=== PATIENT | male | born 1965 | race Caucasian/White ===

== ENCOUNTER → 2019-06-23 14:48 | Outpatient (BNVA) | payer MEDICARE, MEDICAID, SELFPAY | PROVIDERS: Family Provider Family Medicine; PCP Family Medicine; Visit Provider Social Worker | DX: F33.1 Major depressive disorder, recurrent, moderate (principal); F41.1 Generalized anxiety disorder; F42.2 Mixed obsessional thoughts and acts | CPT/HCPCS: 90834 ==

== ENCOUNTER → 2019-08-03 14:45 | Outpatient (BNVA) | payer MEDICARE, MEDICAID, SELFPAY | PROVIDERS: Family Provider Family Medicine; PCP Family Medicine; Visit Provider Social Worker | DX: F33.1 Major depressive disorder, recurrent, moderate (principal); F41.1 Generalized anxiety disorder; F42.2 Mixed obsessional thoughts and acts | CPT/HCPCS: 90834 ==

== ENCOUNTER → 2019-08-23 14:57 | Outpatient (BNVA) | payer OTHER, SELFPAY | PROVIDERS: Family Provider Family Medicine; PCP Family Medicine; Visit Provider Nurse Practitioner Psychiatric/Mental Health | DX: F33.1 Major depressive disorder, recurrent, moderate (principal) | CPT/HCPCS: 80061; 83036 ==

== ENCOUNTER → 2019-09-28 15:37 | Outpatient (BNVA) | payer MEDICARE, MEDICAID, SELFPAY | PROVIDERS: Family Provider Family Medicine; PCP Family Medicine; Visit Provider Social Worker | DX: F33.1 Major depressive disorder, recurrent, moderate (principal); F41.1 Generalized anxiety disorder; F42.2 Mixed obsessional thoughts and acts | CPT/HCPCS: 90834 ==

== ENCOUNTER → 2019-10-26 08:33 | Outpatient (BNVA) | payer MEDICARE, MEDICAID, SELFPAY | PROVIDERS: Family Provider Family Medicine; PCP Family Medicine; Visit Provider Nurse Practitioner Psychiatric/Mental Health | DX: F33.1 Major depressive disorder, recurrent, moderate (principal); F41.1 Generalized anxiety disorder; F42.2 Mixed obsessional thoughts and acts | CPT/HCPCS: 99214 ==

== ENCOUNTER → 2019-11-22 08:45 | Outpatient (BNVA) | payer MEDICARE, MEDICAID, SELFPAY ==
[2019-08-31 14:27] VITALS: BP 120/70; BMI 36.9
== END ==
PROVIDERS: Family Provider Family Medicine; PCP Family Medicine; Visit Provider Social Worker
DX: F41.1 Generalized anxiety disorder (principal); F33.1 Major depressive disorder, recurrent, moderate; F42.2 Mixed obsessional thoughts and acts
CPT/HCPCS: 90834

== ENCOUNTER → 2019-11-26 08:03 | Outpatient (BNVA) | payer MEDICARE, MEDICAID, SELFPAY ==
[2019-08-31 14:27] VITALS: BP 120/70; BMI 36.9
== END ==
PROVIDERS: Family Provider Family Medicine; PCP Family Medicine; Visit Provider Nurse Practitioner Psychiatric/Mental Health
DX: F33.1 Major depressive disorder, recurrent, moderate (principal); F41.1 Generalized anxiety disorder; F42.2 Mixed obsessional thoughts and acts; F17.210 Nicotine dependence, cigarettes, uncomplicated
CPT/HCPCS: 99214

== ENCOUNTER → 2020-01-04 07:44 | Outpatient (BNVA) | payer MEDICARE, MEDICAID, SELFPAY ==
[2019-08-31 14:27] VITALS: BP 120/70; BMI 36.9
== END ==
PROVIDERS: Family Provider Family Medicine; PCP Family Medicine; Visit Provider Nurse Practitioner Psychiatric/Mental Health
DX: F33.1 Major depressive disorder, recurrent, moderate (principal); F41.1 Generalized anxiety disorder; F42.2 Mixed obsessional thoughts and acts
CPT/HCPCS: 99213

== ENCOUNTER → 2020-01-19 08:35 | Outpatient (BNVA) | payer MEDICARE, MEDICAID, SELFPAY ==
[2019-08-31 14:27] VITALS: BP 120/70; BMI 36.9
== END ==
PROVIDERS: Family Provider Family Medicine; PCP Family Medicine; Visit Provider Counselor Professional
DX: F41.1 Generalized anxiety disorder (principal); F42.2 Mixed obsessional thoughts and acts; F33.1 Major depressive disorder, recurrent, moderate
CPT/HCPCS: 90834

== ENCOUNTER → 2020-02-08 09:31 | Outpatient (BNVA) | payer MEDICARE, MEDICAID, SELFPAY ==
[2019-08-31 14:27] VITALS: BP 120/70; BMI 36.9
== END ==
PROVIDERS: Family Provider Family Medicine; Visit Provider Nurse Practitioner Psychiatric/Mental Health
DX: F33.1 Major depressive disorder, recurrent, moderate (principal); F41.1 Generalized anxiety disorder; F42.2 Mixed obsessional thoughts and acts; F17.210 Nicotine dependence, cigarettes, uncomplicated
CPT/HCPCS: 99213

== ENCOUNTER → 2020-03-07 09:06 | Outpatient (BNVA) | payer MEDICARE, MEDICAID, SELFPAY ==
[2019-08-31 14:27] VITALS: BP 120/70; BMI 36.9
== END ==
PROVIDERS: Family Provider Family Medicine; Visit Provider Nurse Practitioner Psychiatric/Mental Health
DX: F33.1 Major depressive disorder, recurrent, moderate (principal); F41.1 Generalized anxiety disorder; F42.2 Mixed obsessional thoughts and acts
CPT/HCPCS: 99214

== ENCOUNTER → 2020-03-20 08:13 | Outpatient (BNVA) | payer MEDICARE, MEDICAID, SELFPAY ==
[2019-08-31 14:27] VITALS: BP 120/70; BMI 36.9
== END ==
PROVIDERS: Family Provider Family Medicine; Visit Provider Nurse Practitioner Psychiatric/Mental Health
DX: F33.1 Major depressive disorder, recurrent, moderate (principal); F41.1 Generalized anxiety disorder; F42.2 Mixed obsessional thoughts and acts
CPT/HCPCS: 99214

== ENCOUNTER → 2020-04-03 07:22 | Outpatient (BNVA) | payer MEDICARE, MEDICAID, SELFPAY ==
[2019-08-31 14:27] VITALS: BP 120/70; BMI 36.9
== END ==
PROVIDERS: Family Provider Family Medicine; Visit Provider Nurse Practitioner Psychiatric/Mental Health
DX: F33.1 Major depressive disorder, recurrent, moderate (principal); F41.1 Generalized anxiety disorder; F42.2 Mixed obsessional thoughts and acts
CPT/HCPCS: 99214

== ENCOUNTER → 2020-04-19 09:21 | Outpatient (BNVA) | payer MEDICARE, MEDICAID, SELFPAY ==
[2019-08-31 14:27] VITALS: BP 120/70; BMI 36.9
== END ==
PROVIDERS: Family Provider Family Medicine; Visit Provider Nurse Practitioner Psychiatric/Mental Health
DX: F33.1 Major depressive disorder, recurrent, moderate (principal); F41.1 Generalized anxiety disorder; F42.2 Mixed obsessional thoughts and acts
CPT/HCPCS: 99214

== ENCOUNTER → 2020-05-03 07:51 | Outpatient (BNVA) | payer MEDICARE, MEDICAID, SELFPAY ==
[2019-08-31 14:27] VITALS: BP 120/70; BMI 36.9
== END ==
PROVIDERS: Family Provider Family Medicine; Visit Provider Nurse Practitioner Psychiatric/Mental Health
DX: F33.1 Major depressive disorder, recurrent, moderate (principal); F41.1 Generalized anxiety disorder; F42.2 Mixed obsessional thoughts and acts
CPT/HCPCS: 99214

== ENCOUNTER → 2020-05-17 08:19 | Outpatient (BNVA) | payer MEDICARE, MEDICAID, SELFPAY ==
[2019-08-31 14:27] VITALS: BP 120/70; BMI 36.9
== END ==
PROVIDERS: Family Provider Family Medicine; Visit Provider Nurse Practitioner Psychiatric/Mental Health
DX: F33.1 Major depressive disorder, recurrent, moderate (principal); F41.1 Generalized anxiety disorder; F42.2 Mixed obsessional thoughts and acts
CPT/HCPCS: 99214

== ENCOUNTER → 2020-05-31 08:14 | Outpatient (BNVA) | payer MEDICARE, MEDICAID, SELFPAY ==
[2019-08-31 14:27] VITALS: BP 120/70; BMI 36.9
== END ==
PROVIDERS: Family Provider Family Medicine; Visit Provider Nurse Practitioner Psychiatric/Mental Health
DX: F33.1 Major depressive disorder, recurrent, moderate (principal); F41.1 Generalized anxiety disorder; F42.2 Mixed obsessional thoughts and acts
CPT/HCPCS: 99214

== ENCOUNTER → 2020-06-19 08:05 | Outpatient (BNVA) | payer MEDICARE, MEDICAID, SELFPAY ==
[2019-08-31 14:27] VITALS: BP 120/70; BMI 36.9
== END ==
PROVIDERS: Family Provider Family Medicine; Visit Provider Nurse Practitioner Psychiatric/Mental Health
DX: F33.1 Major depressive disorder, recurrent, moderate (principal); F41.1 Generalized anxiety disorder; F42.2 Mixed obsessional thoughts and acts; Z63.4 Disappearance and death of family member
CPT/HCPCS: 99214

== ENCOUNTER → 2020-07-03 09:35 | Outpatient (BNVA) | payer MEDICARE, MEDICAID, SELFPAY ==
[2019-08-31 14:27] VITALS: BP 120/70; BMI 36.9
== END ==
PROVIDERS: Family Provider Family Medicine; Visit Provider Nurse Practitioner Psychiatric/Mental Health
DX: F33.1 Major depressive disorder, recurrent, moderate (principal); F41.1 Generalized anxiety disorder; F42.2 Mixed obsessional thoughts and acts; Z63.4 Disappearance and death of family member
CPT/HCPCS: 99214

== ENCOUNTER → 2020-07-17 09:20 | Outpatient (BNVA) | payer MEDICARE, MEDICAID, SELFPAY ==
[2019-08-31 14:27] VITALS: BP 120/70; BMI 36.9
== END ==
PROVIDERS: Family Provider Family Medicine; Visit Provider Nurse Practitioner Psychiatric/Mental Health
DX: F33.1 Major depressive disorder, recurrent, moderate (principal); F41.1 Generalized anxiety disorder; F42.2 Mixed obsessional thoughts and acts; Z63.4 Disappearance and death of family member
CPT/HCPCS: 99214

== ENCOUNTER → 2020-08-04 08:16 | Outpatient (BNVA) | payer MEDICARE, MEDICAID, SELFPAY ==
[2019-08-31 14:27] VITALS: BP 120/70; BMI 36.9
== END ==
PROVIDERS: Family Provider Family Medicine; Visit Provider Nurse Practitioner Psychiatric/Mental Health
DX: F33.1 Major depressive disorder, recurrent, moderate (principal); F41.1 Generalized anxiety disorder; F42.2 Mixed obsessional thoughts and acts; Z63.4 Disappearance and death of family member
CPT/HCPCS: 99214

== ENCOUNTER → 2020-08-14 08:46 | Outpatient (BNVA) | payer MEDICARE, MEDICAID, SELFPAY ==
[2019-08-31 14:27] VITALS: BP 120/70; BMI 36.9
== END ==
PROVIDERS: Family Provider Family Medicine; Visit Provider Nurse Practitioner Psychiatric/Mental Health
DX: F33.1 Major depressive disorder, recurrent, moderate (principal); F41.1 Generalized anxiety disorder; F42.2 Mixed obsessional thoughts and acts; Z63.4 Disappearance and death of family member
CPT/HCPCS: 99214

== ENCOUNTER → 2020-08-28 07:50 | Outpatient (BNVA) | payer MEDICARE, MEDICAID, SELFPAY ==
[2019-08-31 14:27] VITALS: BP 120/70; BMI 36.9
== END ==
PROVIDERS: Family Provider Family Medicine; PCP Nurse Practitioner Family; Visit Provider Nurse Practitioner Psychiatric/Mental Health
DX: F33.1 Major depressive disorder, recurrent, moderate (principal); F41.1 Generalized anxiety disorder; F42.2 Mixed obsessional thoughts and acts; Z63.4 Disappearance and death of family member
CPT/HCPCS: 99214

== ENCOUNTER → 2020-09-11 10:35 | Outpatient (BNVA) | payer MEDICARE, MEDICAID, SELFPAY ==
[2019-08-31 14:27] VITALS: BP 120/70; BMI 36.9
== END ==
PROVIDERS: Family Provider Family Medicine; PCP Nurse Practitioner Family; Visit Provider Nurse Practitioner Psychiatric/Mental Health
DX: F33.1 Major depressive disorder, recurrent, moderate (principal); F41.1 Generalized anxiety disorder; F42.2 Mixed obsessional thoughts and acts; Z63.4 Disappearance and death of family member
CPT/HCPCS: 99214

== ENCOUNTER → 2020-09-13 11:32 | Outpatient (BNVA) | payer OTHER, SELFPAY ==
[2019-08-31 14:27] VITALS: BP 120/70; BMI 36.9
== END ==
PROVIDERS: Family Provider Family Medicine; PCP Nurse Practitioner Family; Visit Provider Nurse Practitioner Psychiatric/Mental Health
DX: F41.1 Generalized anxiety disorder (principal)
CPT/HCPCS: 80061; 83036

== ENCOUNTER → 2020-10-10 09:09 | Outpatient (BNVA) | payer MEDICARE, MEDICAID, SELFPAY ==
[2020-09-15 13:26] VITALS: BP 106/67; BMI 35.2
== END ==
PROVIDERS: Family Provider Family Medicine; Visit Provider Nurse Practitioner Psychiatric/Mental Health
DX: F33.1 Major depressive disorder, recurrent, moderate (principal); F41.1 Generalized anxiety disorder; F42.2 Mixed obsessional thoughts and acts; Z63.4 Disappearance and death of family member
CPT/HCPCS: 99214

== ENCOUNTER → 2020-10-23 08:30 | Outpatient (BNVA) | payer MEDICARE, MEDICAID, SELFPAY ==
[2020-09-15 13:26] VITALS: BP 106/67; BMI 35.2
== END ==
PROVIDERS: Family Provider Family Medicine; Visit Provider Nurse Practitioner Psychiatric/Mental Health
DX: F33.1 Major depressive disorder, recurrent, moderate (principal); F41.1 Generalized anxiety disorder; Z63.4 Disappearance and death of family member; F42.2 Mixed obsessional thoughts and acts
CPT/HCPCS: 99214

== ENCOUNTER → 2020-11-06 08:47 | Outpatient (BNVA) | payer MEDICARE, MEDICAID, SELFPAY ==
[2020-09-15 13:26] VITALS: BP 106/67; BMI 35.2
== END ==
PROVIDERS: Family Provider Family Medicine; Visit Provider Nurse Practitioner Psychiatric/Mental Health
DX: F33.1 Major depressive disorder, recurrent, moderate (principal); F41.1 Generalized anxiety disorder; F42.2 Mixed obsessional thoughts and acts; Z63.4 Disappearance and death of family member
CPT/HCPCS: 99214

== ENCOUNTER → 2020-11-27 14:00 | Outpatient (BNVA) | payer MEDICARE, MEDICAID, SELFPAY ==
[2020-11-06 11:09] VITALS: BP 106/67; BMI 35.2
== END ==
PROVIDERS: Family Provider Family Medicine; Visit Provider Nurse Practitioner Psychiatric/Mental Health
DX: Z63.4 Disappearance and death of family member (principal); F33.1 Major depressive disorder, recurrent, moderate; F41.1 Generalized anxiety disorder; F42.2 Mixed obsessional thoughts and acts
CPT/HCPCS: 99214

== ENCOUNTER → 2020-12-11 14:00 | Outpatient (BNVA) | payer MEDICARE, MEDICAID, SELFPAY ==
[2020-11-06 11:09] VITALS: BP 106/67; BMI 35.2
== END ==
PROVIDERS: Family Provider Family Medicine; PCP Nurse Practitioner Family; Visit Provider Nurse Practitioner Psychiatric/Mental Health
DX: Z63.4 Disappearance and death of family member (principal); F33.1 Major depressive disorder, recurrent, moderate; F41.1 Generalized anxiety disorder; F42.2 Mixed obsessional thoughts and acts
CPT/HCPCS: 99214

== ENCOUNTER → 2020-12-25 07:21 | Outpatient (BNVA) | payer MEDICARE, MEDICAID, SELFPAY ==
[2020-11-06 11:09] VITALS: BP 106/67; BMI 35.2
== END ==
PROVIDERS: Family Provider Family Medicine; Visit Provider Nurse Practitioner Psychiatric/Mental Health
DX: F33.1 Major depressive disorder, recurrent, moderate (principal); F41.1 Generalized anxiety disorder; F42.2 Mixed obsessional thoughts and acts; Z63.4 Disappearance and death of family member
CPT/HCPCS: 99214

== ENCOUNTER → 2021-01-08 15:16 | Outpatient (BNVA) | payer MEDICARE, MEDICAID, SELFPAY ==
[2020-11-06 11:09] VITALS: BP 106/67; BMI 35.2
== END ==
PROVIDERS: Family Provider Family Medicine; Visit Provider Nurse Practitioner Psychiatric/Mental Health
DX: F33.1 Major depressive disorder, recurrent, moderate (principal); F41.1 Generalized anxiety disorder; F42.2 Mixed obsessional thoughts and acts; Z63.4 Disappearance and death of family member
CPT/HCPCS: 99214

== ENCOUNTER → 2021-01-22 13:47 | Outpatient (BNVA) | payer MEDICARE, MEDICAID, SELFPAY ==
[2020-11-06 11:09] VITALS: BP 106/67; BMI 35.2
== END ==
PROVIDERS: Family Provider Family Medicine; Visit Provider Nurse Practitioner Psychiatric/Mental Health
DX: F33.1 Major depressive disorder, recurrent, moderate (principal); F41.1 Generalized anxiety disorder; F42.2 Mixed obsessional thoughts and acts; Z63.4 Disappearance and death of family member
CPT/HCPCS: 99214

== ENCOUNTER → 2021-02-05 13:42 | Outpatient (BNVA) | payer MEDICARE, MEDICAID, SELFPAY ==
[2020-11-06 11:09] VITALS: BP 106/67; BMI 35.2
== END ==
PROVIDERS: Family Provider Family Medicine; Visit Provider Nurse Practitioner Psychiatric/Mental Health
DX: F33.1 Major depressive disorder, recurrent, moderate (principal); F41.1 Generalized anxiety disorder; F42.2 Mixed obsessional thoughts and acts; Z63.4 Disappearance and death of family member
CPT/HCPCS: 99214

== ENCOUNTER → 2021-02-20 13:40 | Outpatient (BNVA) | payer MEDICARE, MEDICAID, SELFPAY ==
[2020-11-06 11:09] VITALS: BP 106/67; BMI 35.2
== END ==
PROVIDERS: Family Provider Family Medicine; Visit Provider Nurse Practitioner Psychiatric/Mental Health
DX: F33.1 Major depressive disorder, recurrent, moderate (principal); F41.1 Generalized anxiety disorder; F42.2 Mixed obsessional thoughts and acts; Z63.4 Disappearance and death of family member
CPT/HCPCS: 99214

== ENCOUNTER → 2021-03-02 13:39 | Outpatient (BNVA) | payer MEDICARE, MEDICAID, SELFPAY ==
[2020-11-06 11:09] VITALS: BP 106/67; BMI 35.2
== END ==
PROVIDERS: Family Provider Family Medicine; Visit Provider Nurse Practitioner Psychiatric/Mental Health
DX: F33.1 Major depressive disorder, recurrent, moderate (principal); F41.1 Generalized anxiety disorder; F42.2 Mixed obsessional thoughts and acts; Z63.4 Disappearance and death of family member
CPT/HCPCS: 99214

== ENCOUNTER → 2021-03-19 13:34 | Outpatient (BNVA) | payer MEDICARE, MEDICAID, SELFPAY ==
[2020-11-06 11:09] VITALS: BP 106/67; BMI 35.2
== END ==
PROVIDERS: Family Provider Family Medicine; Visit Provider Nurse Practitioner Psychiatric/Mental Health
DX: F33.1 Major depressive disorder, recurrent, moderate (principal); F41.1 Generalized anxiety disorder; F42.2 Mixed obsessional thoughts and acts; Z63.4 Disappearance and death of family member
CPT/HCPCS: 99214

== ENCOUNTER → 2021-04-09 14:10 | Outpatient (BNVA) | payer MEDICARE, MEDICAID, SELFPAY ==
[2020-11-06 11:09] VITALS: BP 106/67; BMI 35.2
== END ==
PROVIDERS: Family Provider Family Medicine; Visit Provider Nurse Practitioner Psychiatric/Mental Health
DX: F33.1 Major depressive disorder, recurrent, moderate (principal); F41.1 Generalized anxiety disorder; F42.2 Mixed obsessional thoughts and acts; Z63.4 Disappearance and death of family member
CPT/HCPCS: 99214

== ENCOUNTER → 2021-04-23 12:37 | Outpatient (BNVA) | payer MEDICARE, MEDICAID, SELFPAY ==
[2020-11-06 11:09] VITALS: BP 106/67; BMI 35.2
== END ==
PROVIDERS: Family Provider Family Medicine; Visit Provider Nurse Practitioner Psychiatric/Mental Health
DX: F33.1 Major depressive disorder, recurrent, moderate (principal); F41.1 Generalized anxiety disorder; F42.2 Mixed obsessional thoughts and acts; Z63.4 Disappearance and death of family member
CPT/HCPCS: 99214

== ENCOUNTER → 2021-05-07 13:03 | Outpatient (BNVA) | payer MEDICARE, MEDICAID, OTHER, SELFPAY ==
[2020-11-06 11:09] VITALS: BP 106/67; BMI 35.2
== END ==
PROVIDERS: Family Provider Family Medicine; Visit Provider Nurse Practitioner Psychiatric/Mental Health
DX: F33.1 Major depressive disorder, recurrent, moderate (principal); F41.1 Generalized anxiety disorder; F42.2 Mixed obsessional thoughts and acts; Z63.4 Disappearance and death of family member
CPT/HCPCS: 99214

== ENCOUNTER → 2021-05-21 13:09 | Outpatient (BNVA) | payer MEDICARE, MEDICAID, OTHER, SELFPAY ==
[2020-11-06 11:09] VITALS: BP 106/67; BMI 35.2
== END ==
PROVIDERS: Family Provider Family Medicine; Visit Provider Nurse Practitioner Psychiatric/Mental Health
DX: F33.1 Major depressive disorder, recurrent, moderate (principal); F41.1 Generalized anxiety disorder; F42.2 Mixed obsessional thoughts and acts; Z63.4 Disappearance and death of family member
CPT/HCPCS: 99214

== ENCOUNTER → 2021-06-04 14:45 | Outpatient (BNVA) | payer MEDICARE, MEDICAID, OTHER, SELFPAY ==
[2020-11-06 11:09] VITALS: BP 106/67; BMI 35.2
== END ==
PROVIDERS: Family Provider Family Medicine; Visit Provider Nurse Practitioner Psychiatric/Mental Health
DX: F33.1 Major depressive disorder, recurrent, moderate (principal); F41.1 Generalized anxiety disorder; F42.2 Mixed obsessional thoughts and acts; Z63.4 Disappearance and death of family member
CPT/HCPCS: 99214

== ENCOUNTER → 2021-06-25 08:08 | Outpatient (BNVA) | payer MEDICARE, MEDICAID, OTHER, SELFPAY ==
[2020-11-06 11:09] VITALS: BP 106/67; BMI 35.2
== END ==
PROVIDERS: Family Provider Family Medicine; Visit Provider Nurse Practitioner Psychiatric/Mental Health
DX: F33.1 Major depressive disorder, recurrent, moderate (principal); F41.1 Generalized anxiety disorder; F42.2 Mixed obsessional thoughts and acts; Z63.4 Disappearance and death of family member
CPT/HCPCS: 99214

== ENCOUNTER → 2021-07-25 07:37 | Outpatient (BNVA) | payer MEDICARE, MEDICAID, SELFPAY ==
[2020-11-06 11:09] VITALS: BP 106/67; BMI 35.2
== END ==
PROVIDERS: Family Provider Family Medicine; PCP Family Medicine; Visit Provider Nurse Practitioner Psychiatric/Mental Health
DX: F33.1 Major depressive disorder, recurrent, moderate (principal); F41.1 Generalized anxiety disorder; F42.2 Mixed obsessional thoughts and acts; Z63.4 Disappearance and death of family member
CPT/HCPCS: 99214

== ENCOUNTER → 2021-08-10 13:01 | Outpatient (BNVA) | payer MEDICARE, MEDICAID, SELFPAY ==
[2020-11-06 11:09] VITALS: BP 106/67; BMI 35.2
== END ==
PROVIDERS: Family Provider Family Medicine; PCP Family Medicine; Visit Provider Nurse Practitioner Psychiatric/Mental Health
DX: F33.1 Major depressive disorder, recurrent, moderate (principal); F41.1 Generalized anxiety disorder; F42.2 Mixed obsessional thoughts and acts; Z63.4 Disappearance and death of family member
CPT/HCPCS: 99214

== ENCOUNTER → 2021-09-06 13:21 | Outpatient (BNVA) | payer MEDICARE, MEDICAID, SELFPAY ==
[2020-11-06 11:09] VITALS: BP 106/67; BMI 35.2
== END ==
PROVIDERS: Family Provider Family Medicine; PCP Family Medicine; Visit Provider Nurse Practitioner Psychiatric/Mental Health
DX: F33.1 Major depressive disorder, recurrent, moderate (principal); F41.1 Generalized anxiety disorder; F42.2 Mixed obsessional thoughts and acts; Z79.899 Other long term (current) drug therapy; Z63.4 Disappearance and death of family member
CPT/HCPCS: 99214

== ENCOUNTER → 2021-09-20 13:10 | Outpatient (BNVA) | payer MEDICARE, MEDICAID, SELFPAY ==
[2020-11-06 11:09] VITALS: BP 106/67; BMI 35.2
== END ==
PROVIDERS: PCP Nurse Practitioner Family; Visit Provider Nurse Practitioner Psychiatric/Mental Health
DX: F33.1 Major depressive disorder, recurrent, moderate (principal); F41.1 Generalized anxiety disorder; F42.2 Mixed obsessional thoughts and acts; Z63.4 Disappearance and death of family member
CPT/HCPCS: 99214

== ENCOUNTER → 2021-09-25 11:24 | Outpatient (BNVA) | payer MEDICARE, MEDICAID, OTHER, SELFPAY ==
[2020-11-06 11:09] VITALS: BP 106/67; BMI 35.2
== END ==
PROVIDERS: PCP Nurse Practitioner Family; Visit Provider Nurse Practitioner Psychiatric/Mental Health
DX: Z79.899 Other long term (current) drug therapy (principal); F41.1 Generalized anxiety disorder
CPT/HCPCS: 80053; 80061; 83036

== ENCOUNTER → 2021-10-11 13:12 | Outpatient (BNVA) | payer MEDICARE, MEDICAID, SELFPAY ==
[2021-09-28 13:49] VITALS: BP 134/77; BMI 38.1
== END ==
PROVIDERS: PCP Nurse Practitioner Family; Visit Provider Nurse Practitioner Psychiatric/Mental Health
DX: F33.1 Major depressive disorder, recurrent, moderate (principal); F41.1 Generalized anxiety disorder; F42.2 Mixed obsessional thoughts and acts; Z63.4 Disappearance and death of family member
CPT/HCPCS: 99214

== ENCOUNTER → 2021-10-25 13:16 | Outpatient (BNVA) | payer MEDICARE, MEDICAID, SELFPAY ==
[2021-09-28 13:49] VITALS: BP 134/77; BMI 38.1
== END ==
PROVIDERS: PCP Nurse Practitioner Family; Visit Provider Nurse Practitioner Psychiatric/Mental Health
DX: F33.1 Major depressive disorder, recurrent, moderate (principal); F41.1 Generalized anxiety disorder; F42.2 Mixed obsessional thoughts and acts; Z63.4 Disappearance and death of family member
CPT/HCPCS: 99214

== ENCOUNTER → 2021-11-08 13:13 | Outpatient (BNVA) | payer MEDICARE, MEDICAID, SELFPAY ==
[2021-09-28 13:49] VITALS: BP 134/77; BMI 38.1
== END ==
PROVIDERS: PCP Nurse Practitioner Family; Visit Provider Nurse Practitioner Psychiatric/Mental Health
DX: F33.1 Major depressive disorder, recurrent, moderate (principal); F41.1 Generalized anxiety disorder; F42.2 Mixed obsessional thoughts and acts; Z63.4 Disappearance and death of family member
CPT/HCPCS: 99214

== ENCOUNTER → 2021-11-13 13:10 | Outpatient (BNVA) | payer MEDICARE, MEDICAID, SELFPAY ==
[2021-09-28 13:49] VITALS: BP 134/77; BMI 38.1
== END ==
PROVIDERS: PCP Nurse Practitioner Family; Visit Provider Podiatrist Foot & Ankle Surgery
DX: L85.3 Xerosis cutis (principal); L30.9 Dermatitis, unspecified; M79.671 Pain in right foot; L60.0 Ingrowing nail
CPT/HCPCS: 11750

== ENCOUNTER → 2021-11-22 13:15 | Outpatient (BNVA) | payer MEDICARE, MEDICAID, SELFPAY ==
[2021-09-28 13:49] VITALS: BP 134/77; BMI 38.1
== END ==
PROVIDERS: PCP Nurse Practitioner Family; Visit Provider Nurse Practitioner Psychiatric/Mental Health
DX: F33.1 Major depressive disorder, recurrent, moderate (principal); F41.1 Generalized anxiety disorder; F42.2 Mixed obsessional thoughts and acts; Z63.4 Disappearance and death of family member
CPT/HCPCS: 99214

== ENCOUNTER → 2021-11-29 11:51 | Outpatient (BNVA) | payer MEDICARE, MEDICAID, SELFPAY ==
[2021-09-28 13:49] VITALS: BP 134/77; BMI 38.1
== END ==
PROVIDERS: PCP Nurse Practitioner Family; Visit Provider Podiatrist Foot & Ankle Surgery
DX: L60.0 Ingrowing nail (principal); M79.672 Pain in left foot; Z98.890 Other specified postprocedural states
CPT/HCPCS: 11750; 99213

== ENCOUNTER → 2021-12-18 12:19 | Outpatient (BNVA) | payer MEDICARE, MEDICAID, SELFPAY ==
[2021-09-28 13:49] VITALS: BP 134/77; BMI 38.1
== END ==
PROVIDERS: PCP Nurse Practitioner Family; Visit Provider Family Medicine Adult Medicine
DX: Z20.822 Contact with and (suspected) exposure to COVID-19 (principal)
CPT/HCPCS: 87635

== ENCOUNTER 2022-02-15 06:27 | Day surgery (SDC) | payer MEDICARE, MEDICAID, SELFPAY ==
[2021-09-28 13:49] VITALS: BP 134/77; BMI 38.1
[2022-02-14 09:12] VITALS: BMI 37.3
[2022-02-15 06:49] VITALS: BP 110/74; PULSE 95; RESP 18; TEMP 36.2; O2SAT 93
[2022-02-15] MEDS: sodium chloride 0.9% 1,000 ML 30 ML IV (06:58)
--- NOTE | 2022-02-15 07:04 | W.PM.OPSUD ---
Surgery/Procedure H&P Update DATE OF PROCEDURE: February 15, 2022 DATE H&P PERFORMED: 02/01/22 CHANGES TO PREVIOUS DOCUMENTATION: None PREOP DIAGNOSIS: Chronic GERD despite PPI therapy PLANNED PROCEDURE: Operation Date: 02/15/22 08:00 Proposed Procedures p EGD 25556,k21.9(Not Applicable) - Los Velazco MD Related Problem List Diagnoses (1) Chronic GERD: Assessment and plan (1) Chronic GERD: We discussed the risks of bleeding, perforation, and sedation. The patient has no further questions and wishes to proceed. Status: Acute
--- NOTE | 2022-02-15 07:19 | P.ANESASSM_ITS ---
Pre-Anesthetic Assessment Height/Weight: Height 1.7 m Weight 107.955 kg Temp Pulse Resp BP Pulse Ox O2 Del Method 97.2 F L 95 18 110/74 93 02/15/22 06:49 02/15/22 06:49 02/15/22 06:49 02/15/22 06:49 02/15/22 06:49 02/15/22 06:49 Preop Diagnosis: Routine screening for colon cancer Operation Date: 02/15/22 08:00 Proposed Procedures p EGD 58947,k21.9(Not Applicable) - Los Velazco MD Familial anesthetic complications: None Was Beta [place] taken within 24 hours: N/A Was Clonidine taken within 24 hours: N/A Last intake: Intake Last Liquid Date 02/14/22 Last Liquid Time 20:30 Last Solid Date 02/14/22 Last Solid Time 20:30 Social No alcohol and No tobacco Exam alert, oriented x 3, clear to auscultation bilaterally and regular rate & rhythm Dampened energy - slow to respond Airway Mallampati: Class IV Dentition: other (2 missing teeth) Comments: Comments: Large neck circumference, large tongue CV/HEM Hypertension GI Gastroesophageal Reflux Disease Metabolic Hyperlipidemia and Morbid Obesity Neuropsych Seizure (no seizure in 10 years) Anesthetic Plan ASA status: 3 Anesthesia: MAC Risk of > 500 ml blood loss (7ml/kg in children): No Other Pertinent Information patient took his lisinopril this morning Medications/Allergies Home Medications Medication Instructions Recorded Confirmed Last Taken Type baclofen 20 mg tablet 20 mg PO TID 07/07/19 02/15/22 02/15/22 History calcium carbonate 200 mg-vitamin 1 cap PO TID 07/07/19 02/15/22 02/15/22 History D3 10 mcg (400 unit) capsule carbamazepine 200 mg tablet 200 mg PO TID 07/07/19 02/15/22 02/15/22 History (Tegretol) lisinopril 10 mg tablet 10 mg PO DAILY 07/07/19 02/15/22 02/15/22 History lovastatin 20 mg tablet 20 mg PO DAILY 07/07/19 02/15/22 02/14/22 History tamsulosin 0.4 mg capsule 0.4 mg PO DAILY 07/07/19 02/15/22 02/14/22 History levetiracetam 500 mg tablet 500 mg PO BID 05/30/20 02/15/22 02/15/22 History (Keppra) ammonium lactate 12 % lotion 1 applic topical BID #400 grams 08/17/20 02/15/22 Unknown Rx trazodone 50 mg tablet 50 mg PO .bedtime PRN insomnia #30 07/10/21 02/15/22 02/14/22 Rx tabs clonazepam 0.5 mg tablet (Klonopin) 0.5 mg PO TID #90 tabs 12/27/21 02/15/22 02/15/22 Rx duloxetine 60 mg capsule,delayed 120 mg PO DAILY #180 caps 12/27/21 02/15/22 02/15/22 Rx release (Cymbalta) cetirizine 10 mg capsule (Zyrtec) 10 mg PO DAILY PRN allergy 01/09/22 02/15/22 02/15/22 Rx symptoms #90 caps pantoprazole 40 mg tablet,delayed 40 mg PO DAILY 02/07/22 02/15/22 02/15/22 History release trazodone 100 mg tablet 200 mg PO DIRECTED #60 tabs 02/07/22 02/15/22 02/14/22 Rx sucralfate 1 gram tablet 1 g PO QID 02/15/22 02/15/22 02/15/22 History Allergies Allergy/AdvReac Type Severity Reaction Status Date / Time aspirin Allergy Unknown Verified 02/15/22 06:41 hydromorphone [From Dilaudid] Allergy Unknown Verified 02/15/22 06:41 Penicillins Allergy Unknown Verified 02/15/22 06:41 prednisone Allergy Unknown Verified 02/15/22 06:41 Current Medications Generic Name Dose Route Start Last Admin Trade Name Freq PRN Reason Stop Dose Admin Sodium Chloride 1,000 mls @ 30 mls/hr 02/15/22 06:45 02/15/22 06:58 Sodium Chloride 0.9% IV 02/16/22 06:44 30 mls/hr .Q24H NANCY Administration PFSH Anesthesia Medical History Bereavement father passing away on 01/14/20 COVID-19 virus test result equivocal Erectile dysfunction Generalized anxiety disorder History of high cholesterol History of hypertension History of seizures Major depressive disorder, recurrent episode, moderate with anxious distress Major depressive disorder, recurrent, moderate Mixed obsessional thoughts and acts Nasal drainage Psychiatric care Viral syndrome Family History Father Hypertension Cancer Brother Hypertension Social History Smoking and tobacco status: former smoker Second hand smoke exposure: Yes Alcohol intake: current Alcohol intake frequency: holidays/special occasions only Alcohol type: beer Adopted: No Caregiver/support person: Yes (Home Health comes in to clean and set up his medication) Lives independently: Yes Household members: none Housing: House Marital status: Marital status details: since 2007 Number of children: 2 Number of grandchildren: 10 Highest education level completed: Some College, No Degree service: No Current occupational status: disabled Current occupational exposures/hazards: No Pets and animals: No History of recent travel: Yes Leisure activites: music, games, hunting, fishing and other Leisure activities details: camping Sexually active: No Current gender identity: Male Tova/Cheondoism: Confucianist Special tova needs: No Agree to transfusion: Yes Financial difficulty paying for basics: Somewhat Hard Data Anesthesia Cardiac Studies: No Data to Display
[2022-02-15 08:35] VITALS: BP 90/54; PULSE 82; RESP 20; TEMP 36.6; O2SAT 97
[2022-02-15 08:45] VITALS: BP 104/62; PULSE 94; RESP 18; O2SAT 94
--- NOTE | 2022-02-16 09:01 | ANE.PACU2 ---
Inpatient post-anesthesia follow up: Airway intact: Yes Vital signs: Temperature 98 F Pulse Rate 94 Respiratory Rate 18 Blood Pressure 104/62 Pulse Oximetry 94 Oxygen Delivery Me thod Room Air Oxygen Flow Rate 10 Fraction of Inspir ed Oxygen Hydration adequate: Yes Nausea and vomiting: No Pain level: 2 Mental status: Baseline
[2022-02-16 13:32] LABS: H. Pylori / CLO Test Negative
== END 2022-02-15 09:10 | disposition home or self-care (01) ==
PROVIDERS: PCP Nurse Practitioner Family; Visit Provider Family Medicine
PROC: 0DJ08ZZ Inspection of Upper Intestinal Tract, Via Natural or Artificial Opening Endoscopic (ICD-10-PCS; CPT 43235; principal; 2022-02-15 08:00)
DX: K21.9 Gastro-esophageal reflux disease without esophagitis (principal); K29.50 Unspecified chronic gastritis without bleeding; I10 Essential (primary) hypertension; E78.5 Hyperlipidemia, unspecified; R56.9 Unspecified convulsions; E66.01 Morbid (severe) obesity due to excess calories; Z68.37 Body mass index [BMI] 37.0-37.9, adult; Z87.891 Personal history of nicotine dependence; Z88.0 Allergy status to penicillin; Z88.5 Allergy status to narcotic agent
CPT/HCPCS: 12345; 43239; 87077; 88305; J7030

== ENCOUNTER → 2022-12-09 10:36 | Outpatient (BNVA) | payer MEDICARE, MEDICAID, SELFPAY ==
[2021-09-28 13:49] VITALS: BP 134/77; BMI 38.1
== END ==
PROVIDERS: PCP Nurse Practitioner Family; Visit Provider Podiatrist Foot & Ankle Surgery
DX: M79.671 Pain in right foot (principal); M72.2 Plantar fascial fibromatosis
CPT/HCPCS: 73630; 97760; 99213; L4397

== ENCOUNTER 2022-12-09 15:06 | Outpatient (CLI) | payer MEDICARE, MEDICAID, SELFPAY ==
[2021-09-28 13:49] VITALS: BP 134/77; BMI 38.1
== END 2022-12-09 15:07 | disposition home or self-care (01) ==
LOC: SPT 15:07
PROVIDERS: PCP Nurse Practitioner Family; Visit Provider Podiatrist Foot & Ankle Surgery
DX: M72.2 Plantar fascial fibromatosis (principal)
CPT/HCPCS: 97760; 99213; L4397

== ENCOUNTER → 2023-04-02 14:56 | Outpatient (BNVA) | payer MEDICARE, MEDICAID, SELFPAY ==
[2021-09-28 13:49] VITALS: BP 134/77; BMI 38.1
== END ==
PROVIDERS: PCP Nurse Practitioner Family; Visit Provider Dermatology
DX: L57.0 Actinic keratosis (principal); D22.39 Melanocytic nevi of other parts of face; L82.1 Other seborrheic keratosis; L57.8 Other skin changes due to chronic exposure to nonionizing radiation
CPT/HCPCS: 17000; 99213

== ENCOUNTER 2023-07-17 06:02 | Emergency (ER) | payer MEDICARE, MEDICAID, SELFPAY ==
[2021-09-28 13:49] VITALS: BP 134/77; BMI 38.1
[2023-07-17 06:08] VITALS: BP 133/88; PULSE 74; RESP 18; TEMP 36.4; O2SAT 99; BMI 29.4
--- NOTE | 2023-07-17 06:17 | W.ED.SKABFB ---
HPI - Skin/Abscess/Foreign Bdy General: Chief complaint: Skin/Abscess/Foreign Body Stated complaint: post mri trouble Time Seen by Provider: 07/17/23 06:07 Source: patient Mode of arrival: ambulatory History of Present Illness: 58-year-old male presents to the emergency room with complaint of a swollen area to his left medial antecubital fossa. He evidently had some imaging done yesterday and they were trying to get an IV started and told him that intermittently had an artery direct pressure was applied he noticed a knot this morning became concerned. She denies any shortness of breath chest pain fever sweats or chills Onset (ago): hour(s) Location: LUE Severity: mild Quality: aching Relieving factors: none Exacerbating factors: none Associated symptoms: Deny chills, cough, fever(s) or short of breath Treatments prior to arrival: none Review of Systems Const: Denies: fever(s) or chills Card: Denies: chest pain Resp: Denies: dyspnea Skin/Breast: Denies: rash PFSH ED PFSH: Medical History Viral syndrome Nasal drainage COVID-19 virus test result equivocal Erectile dysfunction History of hypertension History of seizures History of high cholesterol Major depressive disorder, recurrent, moderate Psychiatric care Bereavement father passing away on 01/14/20 Mixed obsessional thoughts and acts Generalized anxiety disorder Major depressive disorder, recurrent episode, moderate with anxious distress Family History Father Hypertension Cancer Brother Hypertension Social History Smoking and tobacco/nicotine status: former use of tobacco/nicotine Second hand smoke exposure: Yes Alcohol intake: current Alcohol intake frequency: holidays/special occasions only Alcohol type: beer Substance/Drug Use: never Adopted: No Caregiver/support person: Yes (Home Health comes in to clean and set up his medication) Lives independently: Yes Household members: none Housing: House Marital status: Marital status details: since 2007 Number of children: 2 Number of grandchildren: 10 Highest education level completed: Some College, No Degree service: No Current occupational status: disabled Current occupational exposures/hazards: No Pets and animals: No Leisure activites: music, games, hunting, fishing and other Leisure activities details: camping Sexually active: No Do you think of yourself as: Straight/Heterosexual Current gender identity: Male Tova/Spiritism: Anabaptist Special tova needs: No Agree to transfusion: Yes Physical Exam Const: COMMON NORMALS: no acute distress GENERAL APPEARANCE: cooperative and comfortable ORIENTATION/CONSCIOUSNESS: Yes awake, Yes oriented to person, Yes oriented to place and Yes oriented to time HENMT: COMMON NORMALS: normocephalic, atraumatic and hearing grossly normal bilaterally HEAD & SCALP: normocephalic and atraumatic Extremity: COMMON NORMALS: normal to inspection, capillary refill normal, no clubbing, cyanosis or edema, no calf tenderness and no pedal edema OTHER: Palpable nodule left antecubital fossa no ecchymosis nonfluctuant nonpulsatile Neuro: SENSORIUM/ORIENTATION: Yes oriented to person, Yes oriented to place and Yes oriented to time Skin: COMMON NORMALS: no rashes or lesions noted GENERAL SKIN EXAM: no rashes or lesions noted Course Vital Signs: Vital signs: Vital Signs Temperature 97.6 F 07/17/23 06:08 Pulse Rate 74 07/17/23 06:08 Respiratory Rate 18 07/17/23 06:08 Blood Pressure 133/88 07/17/23 06:08 Pulse Oximetry 99 07/17/23 06:08 Oxygen Delivery Me thod Room Air 07/17/23 06:08 MDM - Skin/Abscess/Foreign Bdy Medicial Decision Making Subcutaneous hematoma from blood draw. Symptomatic control can use Tylenol and ibuprofen, apply heat as needed follow-up as needed Medical Records I reviewed the patient's medical records. No radiology studies performed this visit Discharge Plan Discharge Patient Disposition: Home Clinical Impression: Hematoma Condition: Stable Prescriptions: No Action carbamazepine [Tegretol] 200 mg tablet 200 mg PO TID lovastatin 20 mg tablet 20 mg PO DAILY baclofen 20 mg tablet 20 mg PO TID calcium carbonate-vitamin D3 200 mg (500 mg) -400 unit capsule 1 cap PO TID tamsulosin 0.4 mg capsule 0.8 mg PO DAILY levetiracetam [Keppra] 500 mg tablet 500 mg PO BID pantoprazole 40 mg tablet,delayed release (DR/EC) 40 mg PO DAILY clonazepam [Klonopin] 0.5 mg tablet 0.5 mg PO TID Qty: 90 3RF Rx Instructions: Take one tablet in am, 2 pm, and 9 pm sildenafil [Viagra] 50 mg tablet 50 mg PO DAILY PRN Rx Instructions: administer 30 minutes to 4 hours before activity duloxetine [Cymbalta] 60 mg capsule,delayed release(DR/EC) 120 mg PO DAILY Qty: 180 2RF Rx Instructions: Take two capsules every morning metronidazole 500 mg tablet 500 mg PO TID Patient Comments: Filled on 03.05.2022 Rx Instructions: Take 1 tablet 3 times a day for 14 days (DME) night splint to right See Rx Instructions .Route .MEDSUPPLY Qty: 1 0RF Rx Instructions: As directed trazodone 150 mg tablet 150 mg PO BEDTIME Qty: 90 2RF Rx Instructions: Take one tablet at bedtime ammonium lactate 12 % lotion 1 applic topical BID Qty: 400 3RF cetirizine 10 mg tablet See Rx Instructions .ROUTE .COMPLEX Qty: 90 3RF Dose Instruction: TAKE 1 TABLET BY MOUTH EVERY DAY NEEDED FOR ALLERGY SYMPTOMS Rx Instructions: TAKE 1 TABLET BY MOUTH EVERY DAY NEEDED FOR ALLERGY SYMPTOMS sucralfate 1 gram tablet 1 g PO QID Discharge Orders: Discharge ED (Routine); Ordered 07/17/23 Ordered By: Daron Perez Referrals: Kecia Peña FNP [Primary Care Provider] - Discharge Diet: Usual diet Discharge Activity: Increase activity as tolerated Patient Instructions: Hematoma (ED), Opioid Safety, Pain Management Activity Restrictions/Additional Instructions: Thank you for choosing [facility] for your healthcare needs today. Please realize this is an emergency room and that we are providing you with a medical screening exam and this may not be complete and all inclusive of all the testing and or work up that you may need to determine your ailment or severity of your illness. It is very important that you follow up as instructed or that you return to the Emergency Department should you have concerns or if your condition changes or worsens in any way. Coding Level of Care Code ED Director Of Loss Prevention for Lizzy López
[2023-07-17 06:33] VITALS: PULSE 74; RESP 16; O2SAT 99
== END 2023-07-17 06:34 | disposition home or self-care (01) ==
PROVIDERS: Emergency Provider Family Medicine; PCP Nurse Practitioner Family
DX: S50.02XA Contusion of left elbow, initial encounter (principal); Z87.891 Personal history of nicotine dependence; I10 Essential (primary) hypertension; Y71.1 Therapeutic (nonsurgical) and rehabilitative cardiovascular devices associated with adverse incidents; W46.0XXA Contact with hypodermic needle, initial encounter
CPT/HCPCS: 99282

== ENCOUNTER → 2023-10-07 14:55 | Outpatient (BNVA) | payer MEDICARE, MEDICAID, SELFPAY ==
[2021-09-28 13:49] VITALS: BP 134/77; BMI 38.1
== END ==
PROVIDERS: PCP Nurse Practitioner Family; Visit Provider Dermatology
DX: L30.8 Other specified dermatitis (principal)
CPT/HCPCS: 99214

== ENCOUNTER → 2024-09-23 12:55 | Outpatient (BNVA) | payer MEDICARE, SELFPAY ==
[2021-09-28 13:49] VITALS: BP 134/77; BMI 38.1
== END ==
PROVIDERS: PCP Nurse Practitioner Family; Visit Provider Podiatrist Foot & Ankle Surgery
DX: M79.671 Pain in right foot (principal); M76.71 Peroneal tendinitis, right leg
CPT/HCPCS: 73630; 99213

== ENCOUNTER → 2024-09-28 10:25 | Outpatient (BNVA) | payer MEDICARE, SELFPAY ==
[2021-09-28 13:49] VITALS: BP 134/77; BMI 38.1
== END ==
PROVIDERS: PCP Nurse Practitioner Family; Visit Provider Nurse Practitioner Family
DX: L30.8 Other specified dermatitis (principal); D22.4 Melanocytic nevi of scalp and neck; L57.3 Poikiloderma of Civatte; L57.8 Other skin changes due to chronic exposure to nonionizing radiation; X58.XXXA Exposure to other specified factors, initial encounter; L81.4 Other melanin hyperpigmentation; L82.1 Other seborrheic keratosis
CPT/HCPCS: 99214

== ENCOUNTER 2024-10-12 00:31 | Emergency (ER) | payer MEDICARE, MEDICAID, SELFPAY ==
[2021-09-28 13:49] VITALS: BP 134/77; BMI 38.1
[2024-10-12 00:40] VITALS: BP 143/91; PULSE 105; RESP 18; TEMP 36.2; O2SAT 96; BMI 34.1
--- NOTE | 2024-10-12 02:25 | W.ED.DENTAL ---
HPI - Dental/Oral General: Chief complaint: Dental/Oral Stated complaint: Tooth Ache Time Seen by Provider: 10/12/24 01:36 History of Present Illness: Patient is a well-appearing 51-year-old male seen for tooth pain which has been getting worse for the last week. He locates it to the back top molar on the left. He has been taking Tylenol which does help the pain some. He went to a dentist yesterday but they said they cannot see him until November but we will try and get him in sooner if they have cancellations. They did not provide him any antibiotics. He denies fever, trouble swallowing, trouble speaking, trouble opening his jaw. And has no other acute complaints. Pain is currently 6 of 10, worse with chewing and better with rest. Related Data Home Medications ?Medication ?Instructions ?Recorded ?Confirmed baclofen 20 mg tablet 20 mg PO TID 07/07/19 09/30/24 carbamazepine 200 mg tablet 200 mg PO TID 07/07/19 09/30/24 (Tegretol) lovastatin 20 mg tablet 20 mg PO DAILY 07/07/19 09/30/24 levetiracetam 500 mg tablet 500 mg PO BID 05/30/20 09/30/24 (Keppra) pantoprazole 40 mg tablet,delayed 40 mg PO DAILY 02/07/22 09/30/24 release tamsulosin 0.4 mg capsule 0.8 mg PO DAILY 03/20/23 09/30/24 famotidine 40 mg tablet 40 mg PO BID 05/06/24 09/30/24 polyethylene glycol 3350 17 4 g PO DAILY PRN 09/30/24 09/30/24 gram/dose oral powder (Miralax) Previous Rx's ?Medication ?Instructions ?Recorded ammonium lactate 12 % lotion 1 applic topical BID #400 grams 08/17/20 cetirizine 10 mg tablet See Rx Instructions .Route 04/02/22 .COMPLEX #90 tabs clonazepam 0.5 mg tablet (Klonopin) 0.5 mg PO TID #90 tabs 09/09/24 duloxetine 60 mg capsule,delayed 120 mg (2 x 60 mg) PO .morning 09/09/24 release (Cymbalta) #180 caps trazodone 100 mg tablet 200 mg (2 x 100 mg) PO BEDTIME 09/09/24 #180 tabs naproxen 500 mg tablet 500 mg PO Q12H 14 days #28 tabs 09/23/24 clindamycin HCl 150 mg capsule 450 mg (3 x 150 mg) PO Q8H 10 days 10/12/24 #90 caps oxycodone-acetaminophen 5 mg-325 1 tab PO Q8H PRN pain #10 tabs 10/12/24 mg tablet (Percocet) Allergies Allergy/AdvReac Type Severity Reaction Status Date / Time aspirin Allergy Unknown Verified 10/12/24 00:43 hydromorphone (From Dilaudid) Allergy Unknown Verified 10/12/24 00:43 Penicillins Allergy Unknown Verified 10/12/24 00:43 prednisone Allergy Unknown Verified 10/12/24 00:43 PFS ED PFSH: Medical History Viral syndrome Nasal drainage COVID-19 virus test result equivocal Erectile dysfunction History of hypertension History of seizures History of high cholesterol Major depressive disorder, recurrent, moderate Psychiatric care Bereavement father passing away on 01/14/20 Mixed obsessional thoughts and acts Generalized anxiety disorder Major depressive disorder, recurrent episode, moderate with anxious distress Family History Father Hypertension Cancer Brother Hypertension Social History Smoking and tobacco/nicotine status: former use of tobacco/nicotine Second hand smoke exposure: Yes Alcohol intake: current Alcohol intake frequency: holidays/special occasions only Alcohol type: beer Substance/Drug Use: never Adopted: No Caregiver/support person: Yes (Home Health comes in to clean and set up his medication) Lives independently: Yes Household members: none Housing: House Marital status: Marital status details: since 2007 Number of children: 2 Number of grandchildren: 10 Highest education level completed: Some College, No Degree service: No Current occupational status: disabled Current occupational exposures/hazards: No Pets and animals: No Leisure activites: music, games, hunting, fishing and other Leisure activities details: camping Sexually active: No Do you think of yourself as: Straight/Heterosexual Current gender identity: Male Tova/Adventist: Mormon Special tova needs: No Agree to transfusion: Yes Physical Exam Const: COMMON NORMALS: no acute distress, patient oriented x3 and alert HENMT: COMMON NORMALS: normocephalic and atraumatic HEAD & SCALP: normocephalic and atraumatic OTHER: No swelling adjacent to the affected teeth. No obvious dental fracture. Eye: COMMON NORMALS: Equal, round and reactive pupils present, EOMs intact bilaterally and no scleral icterus PUPIL: Yes Equal, round and reactive pupils present Resp: COMMON NORMALS: normal respiratory effort and No retractions Cardio: COMMON NORMALS: regular rate, regular rhythm and No murmurs present (Cardio) RATE: regular rate RHYTHM: regular rhythm GI: COMMON NORMALS: Normal to inspection, nondistended, normoactive bowel sounds present, Soft to palpation and non-tender PALPATION: Yes Soft to palpation Neuro: COMMON NORMALS: patient oriented x3 SENSORIUM/ORIENTATION: Yes alert Skin: COMMON NORMALS: no rashes or lesions noted GENERAL SKIN EXAM: no rashes or lesions noted Course Vital Signs: Vital signs: Vital Signs Temperature 97.1 F L 10/12/24 00:40 Pulse Rate 105 H 10/12/24 00:40 Respiratory Rate 18 10/12/24 00:40 Blood Pressure 143/91 10/12/24 00:40 Pulse Oximetry 96 10/12/24 00:40 Oxygen Delivery Me thod Room Air 10/12/24 00:40 MDM - Dental/Oral Medical Decision Making Patient appears to have a deep tooth infection. There is no abscess amenable to drainage adjacent to the teeth. He will be given clindamycin and instructions to use Motrin for pain as well as a very short course of Percocet help him sleep. He will be discharged in stable condition with follow-up to dentist No radiology studies performed this visit Discharge Plan Discharge Patient Disposition: Home Clinical Impression: Tooth infection Condition: Stable Prescriptions: New clindamycin HCl 150 mg capsule 450 mg PO Q8H 10 Days Qty: 90 0RF oxycodone-acetaminophen [Percocet] 5-325 mg tablet 1 tab PO Q8H PRN (Reason: pain) Qty: 10 0RF No Action carbamazepine [Tegretol] 200 mg tablet 200 mg PO TID lovastatin 20 mg tablet 20 mg PO DAILY baclofen 20 mg tablet 20 mg PO TID tamsulosin 0.4 mg capsule 0.8 mg PO DAILY levetiracetam [Keppra] 500 mg tablet 500 mg PO BID pantoprazole 40 mg tablet,delayed release (DR/EC) 40 mg PO DAILY famotidine 40 mg tablet 40 mg PO BID polyethylene glycol 3350 [Miralax] 17 gram/dose powder 4 g PO DAILY PRN trazodone 100 mg tablet 200 mg PO BEDTIME Qty: 180 2RF Rx Instructions: Take two tablets at bedtime duloxetine [Cymbalta] 60 mg capsule,delayed release(DR/EC) 120 mg PO .morning Qty: 180 2RF Rx Instructions: Take two capsules every morning clonazepam [Klonopin] 0.5 mg tablet 0.5 mg PO TID Qty: 90 3RF Rx Instructions: Take one tablet in am, 2 pm, and 9 pm naproxen 500 mg tablet 500 mg PO Q12H 14 Days Qty: 28 0RF ammonium lactate 12 % lotion 1 applic topical BID Qty: 400 3RF cetirizine 10 mg tablet See Rx Instructions .ROUTE .COMPLEX Qty: 90 3RF Dose Instruction: TAKE 1 TABLET BY MOUTH EVERY DAY NEEDED FOR ALLERGY SYMPTOMS Rx Instructions: TAKE 1 TABLET BY MOUTH EVERY DAY NEEDED FOR ALLERGY SYMPTOMS Discharge Orders: Discharge ED (Routine); Ordered 10/12/24 Ordered By: Faraz Mosley Referrals: Kecia Peña FNP [Primary Care Provider] - Discharge Diet: Advance as tolerated Discharge Activity: Resume usual activity Patient Instructions: Dental Abscess (ED) Activity Restrictions/Additional Instructions: In addition to the prescribed Percocet, please take 600 mg of ibuprofen as needed 3 times a day for pain control. Please follow-up with your dentist as soon as feasible. Print Language: Romanian Coding Level of Care Code ED Surgical Garment Fitter for Lizzy López
[2024-10-12 02:29] VITALS: RESP 18; O2SAT 95
[2024-10-12] MEDS: oxyCODONE-APAP 5-325 mg Tablet 1 TAB PO (02:29)
[2024-10-12] MEDS: clindamycin 150 mg Capsule 450 MG PO (02:30)
[2024-10-12] MEDS: ibuprofen 600 mg Tablet PO (02:30)
== END 2024-10-12 02:36 | disposition home or self-care (01) ==
PROVIDERS: Emergency Provider Student in an Organized Health Care Education/Training Program; PCP Nurse Practitioner Family
DX: K04.7 Periapical abscess without sinus (principal); Z87.891 Personal history of nicotine dependence; I10 Essential (primary) hypertension
CPT/HCPCS: 99283; J9999

== ENCOUNTER → 2024-10-25 12:36 | Outpatient (BNVA) | payer MEDICARE, MEDICAID, SELFPAY ==
[2021-09-28 13:49] VITALS: BP 134/77; BMI 38.1
== END ==
PROVIDERS: PCP Nurse Practitioner Family; Visit Provider Podiatrist Foot & Ankle Surgery
DX: M76.71 Peroneal tendinitis, right leg (principal); M79.671 Pain in right foot
CPT/HCPCS: 99213